=== PATIENT | male | born 1980 | race Caucasian/White ===

== ENCOUNTER 2018-02-05 17:08 | Inpatient (IN) | payer OTHER ==
[~2018-02-05] VITALS: Ht 167.6 cm; Wt 102.1 kg
[~2018-02-05 17:08] MED LIST: NON
[2018-02-10] MEDS ORDERED: ZOCOR40 MG PO (13:55)
[2018-02-10] MEDS ORDERED: PROTONIX40 MG PO (13:56)
== END 2018-02-10 15:52 | disposition home or self-care (01) | DRG 440 ==
LOC: ER 17:08 → MEDI 02-06 12:11
PROC: BF37ZZZ Magnetic Resonance Imaging (MRI) of Pancreas (ICD-10-PCS; principal; 2018-02-06)
DX: K85.80 Other acute pancreatitis without necrosis or infection (principal)